=== PATIENT | male | born 1970 | race American Indian/Alaskan Native ===

== ENCOUNTER 2019-06-21 18:21 | Emergency (ER) | payer SELFPAY ==
[2019-06-21] MEDS ORDERED: levETIRAcetam 1000 MG/NS 0.75% 1,000 MG/100 ML BAG IV ONE (19:36)
[2019-06-21] MEDS ORDERED: SODIUM CHLORIDE 0.9% 1000 ML 1,000 ML IV ONE (19:36)
--- NOTE | 2019-06-21 19:37 | Emergency Department Report ---
ED General Adult HPI - General Chief complaint: Seizure Stated complaint: SEIZURE Time Seen by Provider: 06/21/19 19:11 Source: patient, family, EMS (verbal report received from emergency medical services. EMS documentation not available at time of chart dictation ), RN notes reviewed Mode of arrival: Stretcher Limitations: Other (the patient is a poor historian) - History of Present Illness Initial comments: This is a 49-year-old gentleman. This patient is not known to this provider previously. Apparently he has a history of stroke, and "blood clot on the brain", as per report from his sister to nursing team, also has a history of seizures, and reportedly takes Lamictal; we do not know what dose, who prescribes it, or how often. He is brought to the hospital by emergency medical services for possible seizure. As per verbal report from the emergency medical services, patient was walking at a store, and appeared to have a generalized convulsive event, and he was caught by a good Spiritism/passersby. EMS indicates the patient did not fall or hit his head. In the emergency room, the patient has no recollection of the event. He denies physical pain at this time. He denies urinary symptoms at this time. He endorses no complaints at this time. EMS does not know how long the event took place 4. We do not know when his last seizure was. -: Sudden Consistency: now resolved Improves with: none Worsens with: none - Related Data Home Medications Medication Instructions Recorded Confirmed Last Taken Atorvastatin Calcium [Lipitor] 20 mg PO QDAY 06/21/19 06/21/19 Unknown LORazepam [Ativan] 1 mg PO BID PRN 06/21/19 06/21/19 Unknown Lacosamide [Vimpat] 100 mg PO Q12HR 06/21/19 06/21/19 Unknown Lisinopril [Zestril TAB] 10 mg PO QDAY 06/21/19 06/21/19 Unknown Potassium Chloride [K-Dur] 20 meq PO QDAY 06/21/19 06/21/19 Unknown Sertraline [Zoloft] 50 mg PO QAM 06/21/19 06/21/19 Unknown Warfarin 6.5 mg PO QDAY 06/21/19 06/21/19 Unknown carvediloL [Coreg] 25 mg PO BID 06/21/19 06/21/19 Unknown lamoTRIgine [LaMICtal] 100 mg PO BID 06/21/19 06/21/19 Unknown traZODone [Desyrel] 100 mg PO QHS 06/21/19 06/21/19 Unknown Allergies Allergy/AdvReac Type Severity Reaction Status Date / Time Unable to Assess Allergy Unverified 06/21/19 21:10 ED Review of Systems ROS: Stated complaint: SEIZURE Other details as noted in HPI Constitutional: denies: fever Eyes: denies: eye discharge ENT: denies: congestion Respiratory: denies: wheezing Cardiovascular: denies: chest pain Gastrointestinal: denies: abdominal pain, nausea, vomiting Genitourinary: denies: dysuria Neurological: weakness ED Past Medical Hx - Medications Home Medications: Home Medications Medication Instructions Recorded Confirmed Last Taken Type Atorvastatin Calcium [Lipitor] 20 mg PO QDAY 06/21/19 06/21/19 Unknown History LORazepam [Ativan] 1 mg PO BID PRN 06/21/19 06/21/19 Unknown History Lacosamide [Vimpat] 100 mg PO Q12HR 06/21/19 06/21/19 Unknown History Lisinopril [Zestril TAB] 10 mg PO QDAY 06/21/19 06/21/19 Unknown History Potassium Chloride [K-Dur] 20 meq PO QDAY 06/21/19 06/21/19 Unknown History Sertraline [Zoloft] 50 mg PO QAM 06/21/19 06/21/19 Unknown History Warfarin 6.5 mg PO QDAY 06/21/19 06/21/19 Unknown History carvediloL [Coreg] 25 mg PO BID 06/21/19 06/21/19 Unknown History lamoTRIgine [LaMICtal] 100 mg PO BID 06/21/19 06/21/19 Unknown History traZODone [Desyrel] 100 mg PO QHS 06/21/19 06/21/19 Unknown History ED Physical Exam - General Limitations: Other (patient is a poor historian.) General appearance: alert, in no apparent distress - Head Head exam: Present: atraumatic, normocephalic - Eye Eye exam: Present: normal appearance, PERRL, EOMI, other (visual acuity intact to finger counting, color perception, reading at a close distance). Absent: nystagmus - ENT ENT exam: Present: normal exam, normal orophraynx, mucous membranes moist, normal external ear exam - Neck Neck exam: Present: normal inspection, full ROM. Absent: tenderness, meningismus - Respiratory Respiratory exam: Present: normal lung sounds bilaterally. Absent: respiratory distress - Cardiovascular Cardiovascular Exam: Present: regular rate, normal rhythm, normal heart sounds. Absent: bradycardia, tachycardia, systolic murmur, diastolic murmur, rubs, gallop - GI/Abdominal GI/Abdominal exam: Present: soft. Absent: distended, tenderness, guarding, rebound, rigid, pulsatile mass - Rectal Rectal exam: Present: deferred - Extremities Exam Extremities exam: Present: normal inspection, full ROM, other (2+ pulses noted in the bilateral upper, lower extremities. There is no long bone tenderness. Musculoskeletal compartments are soft. The pelvis is stable.). Absent: pedal edema, calf tenderness - Back Exam Back exam: Present: normal inspection, full ROM. Absent: tenderness, CVA tenderness (R), CVA tenderness (L), paraspinal tenderness, vertebral tenderness - Neurological Exam Neurological exam: Present: alert (the patient is alert to name. He knows the year.), other (there is no facial droop. The tongue is midline. Extraocular movements are intact bilaterally. Patient speaking in full complete sentences. Shoulder shrug is intact bilaterally. Hearing is grossly intact bilaterally. Visual acuity intact to finger counting and color perception at a close distance. 5/5 strength 4 extremities. Sensation intact to light touch in 4 extremities.) - Psychiatric Psychiatric exam: Present: flat affect - Skin Skin exam: Present: warm, dry, intact, normal color. Absent: rash ED Course Vital Signs 06/21/19 06/21/19 06/21/19 19:43 19:46 19:47 Temperature 97.5 F L Pulse Rate 96 H 87 Respiratory 19 19 18 Rate Blood Pressure 149/105 Blood Pressure [Left] O2 Sat by Pulse 100 100 100 Oximetry 06/21/19 06/21/19 06/21/19 20:00 20:16 20:30 Temperature Pulse Rate 97 H 94 H 93 H Respiratory 15 22 25 H Rate Blood Pressure 154/111 138/106 138/106 Blood Pressure [Left] O2 Sat by Pulse 100 100 99 Oximetry 06/21/19 06/21/19 06/21/19 20:46 21:00 21:16 Temperature Pulse Rate 90 90 89 Respiratory 15 26 H Rate Blood Pressure 138/106 138/106 160/113 Blood Pressure [Left] O2 Sat by Pulse 100 100 100 Oximetry 06/21/19 06/21/19 06/21/19 21:46 22:00 22:16 Temperature Pulse Rate Respiratory Rate Blood Pressure 160/113 161/112 135/90 Blood Pressure [Left] O2 Sat by Pulse 100 100 100 Oximetry 06/21/19 06/21/19 06/21/19 22:30 22:46 23:00 Temperature Pulse Rate Respiratory Rate Blood Pressure 135/90 135/90 135/90 Blood Pressure [Left] O2 Sat by Pulse 100 100 98 Oximetry 06/22/19 06/22/19 06/22/19 03:00 10:05 10:20 Temperature Pulse Rate 88 80 80 Respiratory 18 16 Rate Blood Pressure 149/106 Blood Pressure 119/78 149/106 [Left] O2 Sat by Pulse 98 97 Oximetry 06/22/19 06/22/19 10:21 12:59 Temperature Pulse Rate 80 80 Respiratory 16 Rate Blood Pressure 149/106 Blood Pressure 132/82 [Left] O2 Sat by Pulse 97 Oximetry - Reevaluation(s) Reevaluation #1: 06/21/19 22:14 Differential diagnosis, including but not limited to: Seizure, postictal state, intracranial hemorrhage, urinary tract infection, medication noncompliance Assessment and plan: 49-year-old gentleman who is brought to the hospital by emergency medical services for seizure in the field, he is now awake and alert, and clinically sober, and not in any acute distress. He moves 4 extremities spontaneously, as per verbal report from EMS did not fall or hit his head/neck. CT scan of the brain negative for acute disease. Patient was given Keppra as well as Lamictal. Unfortunately, he is not able to get home on his own secondary poor cognition, and family is not able to pick him up as they do not have a ride. A case management consult is requested to assist in transportat ion. Nursing team has been requested to reconcile the patient's medications so that THEY MAY be continued while here in the emergency room. Reevaluation #2: 06/22/19 00:[address] Huynh no active medical issues at this time, his medications have been reconciled and continued, case management will need to arrange for transportation. However, if the patient family or friends are able to come by and pick him up, we would consider this reasonable. In addition, if the patient is able to demonstrate that he can get home on his own accord, this would also be reasonable. ED Medical Decision Making - Lab Data Result diagrams: 06/21/19 20:12 06/21/19 20:12 Vital Signs 06/21/19 06/21/19 06/21/19 19:43 19:46 19:47 Temperature 97.5 F L Pulse Rate 96 H 87 Respiratory 19 19 18 Rate Blood Pressure 149/105 O2 Sat by Pulse 100 100 100 Oximetry 06/21/19 06/21/19 06/21/19 20:00 20:16 20:30 Temperature Pulse Rate 97 H 94 H 93 H Respiratory 15 22 25 H Rate Blood Pressure 154/111 138/106 138/106 O2 Sat by Pulse 100 100 99 Oximetry 06/21/19 06/21/19 06/21/19 20:46 21:00 21:16 Temperature Pulse Rate 90 90 89 Respiratory 15 26 H Rate Blood Pressure 138/106 138/106 160/113 O2 Sat by Pulse 100 100 100 Oximetry Lab Results 06/21/19 06/21/19 06/21/19 Range/Units 19:50 20:12 20:12 WBC 4.6 (4.5-11.0) K/mm3 RBC 4.08 (3.65-5.03) M/mm3 Hgb 12.1 (11.8-15.2) gm/dl Hct 36.5 (35.5-45.6) % MCV 89 (84-94) fl MCH 30 (28-32) pg MCHC 33 (32-34) % RDW 13.9 (13.2-15.2) % Plt Count 264 (140-440) K/mm3 PT 25.4 H (12.2-14.9) Sec. INR 2.37 H (0.87-1.13) Sodium (137-145) mmol/L Potassium (3.6-5.0) mmol/L Chloride (98-107) mmol/L Carbon Dioxide (22-30) mmol/L Anion Gap mmol/L BUN (9-20) mg/dL Creatinine (0.8-1.5) mg/dL Estimated GFR ml/min BUN/Creatinine Ratio % Glucose (75-100) mg/dL POC Glucose 86 (70-105) Calcium (8.4-10.2) mg/dL Magnesium (1.7-2.3) mg/dL Total Bilirubin (0.1-1.2) mg/dL AST (5-40) units/L ALT (7-56) units/L Alkaline Phosphatase (35-129) units/L Total Creatine Kinase (55-170) units/L Total Protein (6.3-8.2) g/dL Albumin (3.9-5) g/dL Albumin/Globulin Ratio % Urine Color (Yellow) Urine Turbidity (Clear) Urine pH (5.0-7.0) Ur Specific [place] (1.003-1.030) Urine Protein (Negative) mg/dL Urine Glucose (UA) (Negative) mg/dL Urine Ketones (Negative) mg/dL Urine Blood (Negative) Urine Nitrite (Negative) Urine Bilirubin (Negative) Urine Urobilinogen (<2.0) mg/dL Ur Leukocyte Esterase (Negative) Urine WBC (Auto) (0.0-6.0) /HPF Urine RBC (Auto) (0.0-6.0) /HPF Urine Mucus /HPF Salicylates (2.8-20.0) mg/dL Urine Opiates Screen Urine Methadone Screen Acetaminophen (10.0-30.0) ug/mL Ur Barbiturates Screen Valproic Acid (50-100) ug/mL Ur Phencyclidine Scrn Ur Amphetamines Screen U Benzodiazepines Scrn Urine Cocaine Screen U Marijuana (THC) Screen Drugs of Abuse Note Plasma/Serum Alcohol (0-0.07) % 06/21/19 06/21/19 06/21/19 Range/Units 20:12 20:12 20:12 WBC (4.5-11.0) K/mm3 RBC (3.65-5.03) M/mm3 Hgb (11.8-15.2) gm/dl Hct (35.5-45.6) % MCV (84-94) fl MCH (28-32) pg MCHC (32-34) % RDW (13.2-15.2) % Plt Count (140-440) K/mm3 PT (12.2-14.9) Sec. INR (0.87-1.13) Sodium 142 (137-145) mmol/L Potassium 4.6 (3.6-5.0) mmol/L Chloride 105.3 (98-107) mmol/L Carbon Dioxide 26 (22-30) mmol/L Anion Gap 15 mmol/L BUN 9 (9-20) mg/dL Creatinine 1.3 (0.8-1.5) mg/dL Estimated GFR 58 ml/min BUN/Creatinine Ratio 7 % Glucose 104 H (75-100) mg/dL POC Glucose (70-105) Calcium 8.8 (8.4-10.2) mg/dL Magnesium 2.00 (1.7-2.3) mg/dL Total Bilirubin 0.20 (0.1-1.2) mg/dL AST 28 (5-40) units/L ALT 29 (7-56) units/L Alkaline Phosphatase 60 (35-129) units/L Total Creatine Kinase 487 H (55-170) units/L Total Protein 6.8 (6.3-8.2) g/dL Albumin 3.9 (3.9-5) g/dL Albumin/Globulin Ratio 1.3 % Urine Color (Yellow) Urine Turbidity (Clear) Urine pH (5.0-7.0) Ur Specific [place] (1.003-1.030) Urine Protein (Negative) mg/dL Urine Glucose (UA) (Negative) mg/dL Urine Ketones (Negative) mg/dL Urine Blood (Negative) Urine Nitrite (Negative) Urine Bilirubin (Negative) Urine Urobilinogen (<2.0) mg/dL Ur Leukocyte Esterase (Negative) Urine WBC (Auto) (0.0-6.0) /HPF Urine RBC (Auto) (0.0-6.0) /HPF Urine Mucus /HPF Salicylates < 0.3 L (2.8-20.0) mg/dL Urine Opiates Screen Urine Methadone Screen Acetaminophen < 5.0 L (10.0-30.0) ug/mL Ur Barbiturates Screen Valproic Acid < 2.8 L (50-100) ug/mL Ur Phencyclidine Scrn Ur Amphetamines Screen U Benzodiazepines Scrn Urine Cocaine Screen U Marijuana (THC) Screen Drugs of Abuse Note Plasma/Serum Alcohol (0-0.07) % 06/21/19 06/21/19 06/21/19 Range/Units 20:12 21:00 21:00 WBC (4.5-11.0) K/mm3 RBC (3.65-5.03) M/mm3 Hgb (11.8-15.2) gm/dl Hct (35.5-45.6) % MCV (84-94) fl MCH (28-32) pg MCHC (32-34) % RDW (13.2-15.2) % Plt Count (140-440) K/mm3 PT (12.2-14.9) Sec. INR (0.87-1.13) Sodium (137-145) mmol/L Potassium (3.6-5.0) mmol/L Chloride (98-107) mmol/L Carbon Dioxide (22-30) mmol/L Anion Gap mmol/L BUN (9-20) mg/dL Creatinine (0.8-1.5) mg/dL Estimated GFR ml/min BUN/Creatinine Ratio % Glucose (75-100) mg/dL POC Glucose (70-105) Calcium (8.4-10.2) mg/dL Magnesium (1.7-2.3) mg/dL Total Bilirubin (0.1-1.2) mg/dL AST (5-40) units/L ALT (7-56) units/L Alkaline Phosphatase (35-129) units/L Total Creatine Kinase (55-170) units/L Total Protein (6.3-8.2) g/dL Albumin (3.9-5) g/dL Albumin/Globulin Ratio % Urine Color Yellow (Yellow) Urine Turbidity Clear (Clear) Urine pH 5.0 (5.0-7.0) Ur Specific [place] 1.021 (1.003-1.030) Urine Protein <15 mg/dl (Negative) mg/dL Urine Glucose (UA) Neg (Negative) mg/dL Urine Ketones Neg (Negative) mg/dL Urine Blood Neg (Negative) Urine Nitrite Neg (Negative) Urine Bilirubin Neg (Negative) Urine Urobilinogen < 2.0 (<2.0) mg/dL Ur Leukocyte Esterase Neg (Negative) Urine WBC (Auto) < 1.0 (0.0-6.0) /HPF Urine RBC (Auto) 2.0 (0.0-6.0) /HPF Urine Mucus Few /HPF Salicylates (2.8-20.0) mg/dL Urine Opiates Screen Presumptive negative Urine Methadone Screen Presumptive negative Acetaminophen (10.0-30.0) ug/mL Ur Barbiturates Screen Presumptive negative Valproic Acid (50-100) ug/mL Ur Phencyclidine Scrn Presumptive negative Ur Amphetamines Screen Presumptive positive U Benzodiazepines Scrn Presumptive negative Urine Cocaine Screen Presumptive negative U Marijuana (THC) Screen Presumptive negative Drugs of Abuse Note Disclamer Plasma/Serum Alcohol < 0.01 (0-0.07) % - EKG Data -: EKG Interpreted by Fl EKG shows normal: sinus rhythm Rate: normal - EKG Data When compared to previous EKG there are: previous EKG unavailable 06/21/19 22:14 There is no prior EKG available for comparison. The EKG shows a sinus rhythm, 92 beats for minute, normal axis, left ventricular hypertrophy, QTC is 456 ms, there is motion artifact, there is no endorsement of chest pain, the EKG is abnormal, the EKG is not consistent with a STEMI - Radiology Data Radiology results: report reviewed, image reviewed Print Report Referring Physician: TATIANA ALMENDAREZ Patient Name: SAMIR HERNANDEZ Date of : 1970 Sex: Male Report Date: 2019-06-21 Report Status: Finalized Findings [facility] [address] [place] [address] Cat Scan Report Signed Patient: SAMIR HERNANDEZ V MR#: [id number] : 1970 Acct:[id number] Age/Sex: 49 / M ADM Date: 06/21/19 Loc: ED Attending Dr: Ordering Physician: TATIANA ALMENDAREZ MD Date of Service: 06/21/19 Procedure(s): CT head/brain wo con Accession Number(s): [id number] cc: TATIANA ALMENDAREZ MD CT HEAD WITHOUT CONTRAST INDICATION / CLINICAL INFORMATION: Seizure. Altered mental status. TECHNIQUE: All CT scans at this location are performed using CT dose reduction for ALARA by means of automated exposure control. COMPARISON: None available. FINDINGS: HEMORRHAGE: No evidence of intracranial hemorrhage or extra-axial fluid collection. EXTRA-AXIAL SPACES: Focal dilatation of the kan ical sulci along the lateral convexity of the left frontal and parietal lobes is noted. Similar findings are seen along the medial aspect of the left occipital lobe secondary to remote left MCA and left posterior cerebral artery infarctions. The left sylvian fissure is dilated. VENTRICULAR SYSTEM: Ex vacuo dilatation of the atria, occipital horn and posterior body of the left lateral ventricle is noted secondary to adjacent remote infarctions in a left middle cerebral artery and left posterior cerebral artery distribution. The ventricular system is of otherwise normal size and configuration. CEREBRAL PARENCHYMA: Decreased attenuation in the medial occipital lobe and left frontal and parietal lobes are secondary to remote infarction. MIDLINE SHIFT OR HERNIATION: There is no mass effect. CEREBELLUM / BRAINSTEM: Brainstem and cerebellum have an unremarkable appearance. INTRACRANIAL VESSELS:No abnormalities are identified on this noncontrast head CT. ORBITS: visualized portions of the orbits have an unremarkable appearance. SOFT TISSUES of HEAD: No significant abnormality. CALVARIUM: Evaluation of bone windows reveals no abnormalities. PARANASAL SINUSES / MASTOID AIR CELLS: Paranasal sinuses are free from inflammatory mucosal disease. Mastoid air cells are normally pneumatized. IMPRESSION: 1. Remote left MCA and left MANUFACTURER'S REPRESENTATIVE infarctions with associated encephalomalacia and focal atrophy as described in detail above. 2. No acute intracranial abnormality. Signer Name: Ron Maya MD Signed: 06/21/2019 9:45 PM Workstation Name: [id number] Transcribed By: Dictated By: Ron Maya MD Electronically Authenticated By: Ron Maya MD Signed Date/Time: 06/21/19 7728 Critical care attestation.: If time is entered above; I have spent that time in minutes in the direct care of this critically ill patient, excluding procedure time. ED Disposition Clinical Impression: History of seizure Disposition: DC-01 TO HOME OR SELFCARE Is pt being admited?: No Does the pt Need Aspirin: No Condition: Stable Additional Instructions: Do not drive or operate motor vehicles for the next 6 months or until cleared to do so by her primary care doctor or neurologist. Continue current outpatient seizure medication, lamictal, and please follow-up with your primary care doctor or neurology specialist within the next 5-7 days. Return to emergency room right away with new, worsened, different symptoms, or symptoms not present on the initial emergency room evaluation. Referrals: CRISPIN PEÑA MD [Staff Physician] - 3-5 Days LENORE WOODS MD [Staff Physician] - 3-5 Days GORDON KHANNA MD [Referring] - 3-5 Days
[2019-06-21] MEDS ORDERED: lamoTRIgine 100 MG TAB PO ONE (20:26)
[2019-06-21 20:27] LABS: Hematocrit 36.5 % (35.5-45.6); Hemoglobin 12.1 gm/dl (11.8-15.2); Mean Corpuscular HGB Conc 33 % (32-34); Mean Corpuscular Volume 89 fl (84-94); Platelet Count 264 K/mm3 (140-440); Red Blood Count 4.08 M/mm3 (3.65-5.03); Red Cell Distribution Width 13.9 % (13.2-15.2)
[2019-06-21 20:46] LABS: Albumin 3.9 g/dL (3.9-5); Calcium 8.8 mg/dL (8.4-10.2); INR 2.37 (0.87-1.13)
[2019-06-21 21:16] LABS: Bilirubin,Urine NEG (Negative); Blood,Urine NEG (Negative); Color,Urine Yellow (Yellow); Mucus,Urine FEW /HPF; Protein,Urine <15 mg/dL mg/dL (Negative); Urobilinogen,Urine < 2.0 mg/dL (<2.0); WBC,Urine < 1.0 /HPF (0.0-6.0)
[2019-06-21 21:22] LABS: Benzodiazepines Screen,Urine PRESUMPTIVE NEGATIVE; Cannabinoid Screen,Urine PRESUMPTIVE NEGATIVE; Cocaine Screen,Urine PRESUMPTIVE NEGATIVE; Methadone Screen,Urine PRESUMPTIVE NEGATIVE; Opiate Screen,Urine PRESUMPTIVE NEGATIVE
[2019-06-21 21:34] LABS: Amphetamine Screen,Urine PRESUMPTIVE POSITIVE
--- NOTE | 2019-06-21 21:49 | Cat Scan Report ---
CT HEAD WITHOUT CONTRAST INDICATION / CLINICAL INFORMATION: Seizure. Altered mental status. TECHNIQUE: All CT scans at this location are performed using CT dose reduction for ALARA by means of automated e xposure control. COMPARISON: None available. FINDINGS: HEMORRHAGE: No evidence of intracranial hemorrhage or extra-axial fluid collection. EXTRA-AXIAL SPACES: Focal dilatation of the cortical sulci along the lateral convexity of the left fr ontal and parietal lobes is noted. Similar findings are seen along the medial aspect of the left occi pital lobe secondary to remote left MCA and left posterior cerebral artery infarctions. The left sylv martha fissure is dilated. VENTRICULAR SYSTEM: Ex vacuo dilatation of the atria, occipital horn and posterior body of the left l ateral ventricle is noted secondary to adjacent remote infarctions in a left middle cerebral artery a nd left posterior cerebral artery distribution. The ventricular system is of otherwise normal size an d configuration. CEREBRAL PARENCHYMA: Decreased attenuation in the medial occipital lobe and left frontal and parietal lobes are secondary to remote infarction. MIDLINE SHIFT OR HERNIATION: There is no mass effect. CEREBELLUM / BRAINSTEM: Brainstem and cerebellum have an unremarkable appearance. INTRACRANIAL VESSELS:No abnormalities are identified on this noncontrast head CT. ORBITS: visualized portions of the orbits have an unremarkable appearance. SOFT TISSUES of HEAD: No significant abnormality. CALVARIUM: Evaluation of bone windows reveals no abnormalities. PARANASAL SINUSES / MASTOID AIR CELLS: Paranasal sinuses are free from inflammatory mucosal disease. Mastoid air cells are normally pneumatized. IMPRESSION: 1. Remote left MCA and left CIRCUIT BREAKER MECHANIC infarctions with associated encephalomalacia and focal atrophy as erlinda cribed in detail above. 2. No acute intracranial abnormality. Signer Name: Ron Maya MD Signed: 06/21/2019 9:45 PM Workstation Name: [id number]
[2019-06-21] MEDS ORDERED: LORazepam 1 MG TAB PO PRN (23:00)
[2019-06-21] MEDS ORDERED: LACOSAMIDE 100 MG TAB PO STA (23:01)
[2019-06-22] MEDS: carvediloL 25 MG TAB PO SCH ×2 (00:17→10:20)
[2019-06-22] MEDS ORDERED: POTASSIUM CHLORIDE ER 20 MEQ TAB PO SCH (10:00)
[2019-06-22] MEDS ORDERED: SERTRALINE 50 MG TAB PO SCH (10:00)
[2019-06-22] MEDS ORDERED: LISINOPRIL 10 MG TAB PO SCH (10:00)
[2019-06-22] MEDS ORDERED: ATORVASTATIN CALCIUM 20 MG PO SCH (10:00)
[2019-06-22] MEDS ORDERED: WARFARIN PO SCH (10:00)
[2019-06-22] MEDS ORDERED: lamoTRIgine 100 MG TAB PO SCH (10:00)
[2019-06-22] MEDS ORDERED: LACOSAMIDE 100 MG TAB PO SCH (10:00)
[2019-06-22 13:01] VITALS: BP 132/82
[2019-06-22] MEDS ORDERED: WARFARIN 2 MG TAB PO SCH (17:00)
[2019-06-22] MEDS ORDERED: WARFARIN 2.5 MG TAB PO SCH (17:00)
[2019-06-22] MEDS ORDERED: traZODone 100 MG TAB PO SCH (22:00)
== END 2019-06-22 13:05 | disposition home or self-care (01) ==
LOC: ED 18:21
DX: G40.909 Epilepsy, unspecified, not intractable, without status epilepticus (principal); Z79.899 Other long term (current) drug therapy
CPT/HCPCS: 36415; 70450; 80053; 80164; 80307; 81001; 82550; 82962; 83735; 85027; 85610; 93005; 93010; 96365; 99285; A9270; J1953; J7030; 80320; G0480

== ENCOUNTER 2020-05-01 10:06 | Emergency (ER) | payer OTHER ==
[2020-05-01] MEDS ORDERED: levETIRAcetam 1000 MG/NS 0.75% 1,000 MG/100 ML BAG IV ONE (10:16)
[2020-05-01] MEDS ORDERED: DIPHtheria,PERTUSSIS(ACELL),TETANUS VACCINE/PF 0.5 ML VIAL IM ONE (10:17)
[2020-05-01] MEDS ORDERED: lamoTRIgine 100 MG TAB PO ONE (10:17)
--- NOTE | 2020-05-01 10:18 | Emergency Department Report ---
ED General Adult HPI - General Chief complaint: Seizure Stated complaint: SEIZURE PUI?: No Time Seen by Provider: 05/01/20 10:13 Source: patient, EMS (Verbal report received from emergency medical services. EMS documentation not available at time of chart dictation ), RN notes reviewed, old records reviewed Mode of arrival: Stretcher Limitations: Other (Patient is a poor historian) - History of Present Illness Initial comments: The patient was evaluated in the emergency department for symptoms described in the history of present illness. He/she was evaluated in the context of the global COVID-19 pandemic, which necessitated consideration that the patient might be at risk for infection with the virus that causes COVID-19. Institutional protocols and algorithms that pertain to the evaluation of patients at risk for COVID-19 are in a state of rapid change based on information released by regulatory bodies including the CDC and federal and state organizations. These policies and algorithms were followed during the patient's care in the emergency department. Please note that these policies, procedures and recommendations changed on a rapid basis. Mr. Sanderson is a 50-year-old gentleman whom I have evaluated in the past. His past history includes stroke in 2016, with some residual cognitive deficits, hypertension, seizure disorder, permanent AICD in place, reported history of methamphetamine abuse, hypertension and hyperlipidemia. He also takes Eliquis, for unclear reasons. He is brought to the hospital today by emergency medical services with a reported complaint of seizure. EMS states the patient was at home, had a seizure, fell and hit his head. They report no unstable vital signs in the field. They report normal Accu-Chek in the field. Patient himself complains of mild frontal headache, from where he fell. He makes no complaint of neck pain. He is somewhat confused. He says that he thinks he had a seizure while he was eating, but he is not certain. He denies midline neck pain, chest pain, abdominal pain, shortness of breath, urinary symptoms, hematemesis and bright red blood per rectum. He is not sure if he is compliant with his seizure medications. He is not sure when his last seizure was. He is not accompanied by friends or family at this time for additional information or collateral information. -: Sudden Location: head Quality: aching Consistency: intermittent Improves with: other (Patient does not describe improving factors or worsening factors.) Associated Symptoms: headaches - Related Data Home Medications Medication Instructions Recorded Confirmed Last Taken Atorvastatin Calcium [Lipitor] 10 mg PO QDAY 06/21/19 05/01/20 Unknown Lacosamide [Vimpat] 100 mg PO Q12HR 06/21/19 05/01/20 Unknown carvediloL [Coreg] 12.5 mg PO BID 06/21/19 05/01/20 Unknown lisinopriL [Zestril TAB] 5 mg PO QDAY 06/21/19 05/01/20 Unknown AtorvaSTATin [Lipitor] 10 mg PO QHS 05/01/20 05/01/20 Unknown Eliquis 05/01/20 Unknown Lacosamide [Vimpat] 100 mg PO Q12HR 05/01/20 05/01/20 Unknown Previous Rx's Medication Instructions Recorded Last Taken Type lamoTRIgine [LaMICtal] 100 mg PO BID #60 05/01/20 Unknown Rx levETIRAcetam [Keppra TAB] 1,000 mg PO QAM #30 05/01/20 Unknown Rx levETIRAcetam [Keppra TAB] 1,250 mg PO QPM #30 05/01/20 Unknown Rx Allergies Allergy/AdvReac Type Severity Reaction Status Date / Time No Known Allergies Allergy Verified 04/15/20 21:20 ED Review of Systems ROS: Stated complaint: SEIZURE Other details as noted in HPI Constitutional: denies: fever Eyes: denies: eye discharge ENT: denies: epistaxis Respiratory: denies: cough Cardiovascular: denies: chest pain Gastrointestinal: denies: abdominal pain, hematemesis, melena, hematochezia Genitourinary: denies: dysuria Musculoskeletal: myalgia Skin: other (Frontal abrasion) Neurological: headache, confusion ED Past Medical Hx - Past Medical History Hx Hypertension: Yes Hx CVA: Yes (2016) Hx Congestive Heart Failure: Yes Hx Seizures: Yes Hx Psychiatric Treatment: Yes (depression) Additional medical history: memory problems - Surgical History Hx Pacemaker: Yes Additional Surgical History: unknown - Social History Smoking Status: Never Smoker Substance Use Type: None - Medications Home Medications: Home Medications Medication Instructions Recorded Confirmed Last Taken Type Atorvastatin Calcium [Lipitor] 10 mg PO QDAY 06/21/19 05/01/20 Unknown History Lacosamide [Vimpat] 100 mg PO Q12HR 06/21/19 05/01/20 Unknown History carvediloL [Coreg] 12.5 mg PO BID 06/21/19 05/01/20 Unknown History lisinopriL [Zestril TAB] 5 mg PO QDAY 06/21/19 05/01/20 Unknown History AtorvaSTATin [Lipitor] 10 mg PO QHS 05/01/20 05/01/20 Unknown History Eliquis 05/01/20 Unknown History Lacosamide [Vimpat] 100 mg PO Q12HR 05/01/20 05/01/20 Unknown History lamoTRIgine [LaMICtal] 100 mg PO BID #60 05/01/20 Unknown Rx levETIRAcetam [Keppra TAB] 1,000 mg PO QAM #30 05/01/20 Unknown Rx levETIRAcetam [Keppra TAB] 1,250 mg PO QPM #30 05/01/20 Unknown Rx ED Physical Exam - General Limitations: Other (Patient somewhat confused and is a poor historian) General appearance: alert, in no apparent distress - Head Head exam: Present: normocephalic, other (Right frontal abrasion) - Eye Eye exam: Present: normal appearance, PERRL, EOMI, nystagmus - ENT ENT exam: Present: normal exam, normal orophraynx, mucous membranes moist, TM's normal bilaterally, normal external ear exam - Neck Neck exam: Present: normal inspection, full ROM. Absent: tenderness, meningismus - Respiratory Respiratory exam: Present: normal lung sounds bilaterally. Absent: respiratory distress, wheezes, rales, rhonchi, stridor, decreased breath sounds - Cardiovascular Cardiovascular Exam: Present: regular rate, normal rhythm, normal heart sounds. Absent: bradycardia, tachycardia, irregular rhythm, systolic murmur, diastolic murmur, rubs, gallop - GI/Abdominal GI/Abdominal exam: Present: soft, normal bowel sounds. Absent: distended, tenderness, guarding, rebound, rigid, pulsatile mass - Rectal Rectal exam: Present: deferred - Extremities Exam Extremities exam: Present: normal inspection, full ROM, normal capillary refill, other (2+ pulses noted in the bilateral upper and lower extremities. There is no palpable cord. negative Homans sign. Muscular compartments are soft. The pelvis is stable.). Absent: pedal edema, calf tenderness - Back Exam Back exam: Present: normal inspection, full ROM. Absent: tenderness, CVA tenderness (R), CVA tenderness (L), paraspinal tenderness, vertebral tenderness - Neurological Exam Neurological exam: Present: alert, other (No facial droop. Tongue midline. Extraocular movements intact bilaterally. Facial sensation intact to light touch in V1, V2, V3 distribution bilaterally. 5 and a 5 strength in 4 extremities. Sensation intact to light touch in 4 extremities.). Absent: motor sensory deficit - Psychiatric Psychiatric exam: Present: flat affect - Skin Skin exam: Present: warm, dry, intact, normal color. Absent: rash ED Course Vital Signs 05/01/20 05/01/20 11:01 11:35 Temperature 98.0 F Pulse Rate 65 73 Respiratory 16 Rate Blood Pressure 125/76 [Right] O2 Sat by Pulse 98 100 Oximetry - Reevaluation(s) Reevaluation #1: 05/01/20 11:16 Differential diagnosis, including but not limited to: Seizure, closed head injury, intracranial injury, cervical spine injury, concussion, pneumonia, urinary tract infection Assessment and plan: 50-year-old gentleman with reported history of seizure, on anticoagulation, presenting with reported history of seizure today. Patient is awake, somewhat confused, but knows his name, location, follows commands, protects his airway, he does not appear to be in any acute distress. Given poor cognition, CT scan of the brain and cervical spine are obtained, neg ative for acute disease, specifically, no bleeding is noted. Patient is not in A. fib or a flutter at this time. Screening laboratory studies ordered and are pending. Urinalysis is pending at this time. Patient will be given Keppra and Lamictal. We will observe him in the emergency room. Reevaluation #2: 05/01/20 13:15 Patient re-observed and reassessed multiple times while here in the department. Neurologically unchanged, no active seizures. Objective imaging studies negative for acute pathology. Laboratory studies appear to be at baseline. No further convulsive events noted. Patient suitable for discharge with outpatient follow-up. ED Medical Decision Making - Lab Data Result diagrams: 05/01/20 10:37 05/01/20 10:37 Vital Signs 05/01/20 05/01/20 11:01 11:35 Temperature 98.0 F Pulse Rate 65 73 Respiratory 16 Rate Blood Pressure 125/76 [Right] O2 Sat by Pulse 98 100 Oximetry Lab Results 05/01/20 05/01/20 05/01/20 Range/Units 10:37 10:37 10:37 Hgb (11.8-15.2) gm/dl Hct (35.5-45.6) % Plt Count (140-440) K/mm3 PT (12.2-14.9) Sec. INR (0.87-1.13) APTT (24.2-36.6) Sec. Sodium 141 (137-145) mmol/L Potassium 4.1 (3.6-5.0) mmol/L Chloride 103.6 (98-107) mmol/L Carbon Dioxide 26 (22-30) mmol/L Anion Gap 16 mmol/L BUN 16 (9-20) mg/dL Creatinine 1.6 H (0.8-1.3) mg/dL Estimated GFR 55 ml/min BUN/Creatinine Ratio 10 % Glucose 107 H (75-100) mg/dL Calcium 9.6 (8.4-10.2) mg/dL Magnesium (1.7-2.3) mg/dL Total Bilirubin 0.20 (0.1-1.2) mg/dL AST 23 (5-40) units/L ALT 20 (7-56) units/L Alkaline Phosphatase 82 (35-129) units/L Total Creatine Kinase (55-170) units/L Total Protein 7.3 (6.3-8.2) g/dL Albumin 4.2 (3.9-5) g/dL Albumin/Globulin Ratio 1.4 % Salicylates < 0.3 L (2.8-20.0) mg/dL Acetaminophen 5.0 L (10.0-30.0) ug/mL Plasma/Serum Alcohol (0-0.07) % 05/01/20 05/01/20 05/01/20 Range/Units 10:37 10:37 10:37 Hgb (11.8-15.2) gm/dl Hct (35.5-45.6) % Plt Count (140-440) K/mm3 PT 15.5 H (12.2-14.9) Sec. INR 1.20 H (0.87-1.13) APTT 35.2 (24.2-36.6) Sec. Sodium (137-145) mmol/L Potassium (3.6-5.0) mmol/L Chloride (98-107) mmol/L Carbon Dioxide (22-30) mmol/L Anion Gap mmol/L BUN (9-20) mg/dL Creatinine (0.8-1.3) mg/dL Estimated GFR ml/min BUN/Creatinine Ratio % Glucose (75-100) mg/dL Calcium (8.4-10.2) mg/dL Magnesium 2.40 H (1.7-2.3) mg/dL Total Bilirubin (0.1-1.2) mg/dL AST (5-40) units/L ALT (7-56) units/L Alkaline Phosphatase (35-129) units/L Total Creatine Kinase 188 H (55-170) units/L Total Protein (6.3-8.2) g/dL Albumin (3.9-5) g/dL Albumin/Globulin Ratio % Salicylates (2.8-20.0) mg/dL Acetaminophen (10.0-30.0) ug/mL Plasma/Serum Alcohol < 0.01 (0-0.07) % 05/01/20 Range/Units 10:37 Hgb 12.6 (11.8-15.2) gm/dl Hct 37.2 (35.5-45.6) % Plt Count 269 (140-440) K/mm3 PT (12.2-14.9) Sec. INR (0.87-1.13) APTT (24.2-36.6) Sec. Sodium (137-145) mmol/L Potassium (3.6-5.0) mmol/L Chloride (98-107) mmol/L Carbon Dioxide (22-30) mmol/L Anion Gap mmol/L BUN (9-20) mg/dL Creatinine (0.8-1.3) mg/dL Estimated GFR ml/min BUN/Creatinine Ratio % Glucose (75-100) mg/dL Calcium (8.4-10.2) mg/dL Magnesium (1.7-2.3) mg/dL Total Bilirubin (0.1-1.2) mg/dL AST (5-40) units/L ALT (7-56) units/L Alkaline Phosphatase (35-129) units/L Total Creatine Kinase (55-170) units/L Total Protein (6.3-8.2) g/dL Albumin (3.9-5) g/dL Albumin/Globulin Ratio % Salicylates (2.8-20.0) mg/dL Acetaminophen (10.0-30.0) ug/mL Plasma/Serum Alcohol (0-0.07) % - EKG Data -: EKG Interpreted by Me EKG shows normal: sinus rhythm Rate: normal - EKG Data 05/01/20 11:15 EKG today shows a sinus rhythm, 51 bpm, left axis deviation, left anterior fascicular block, borderline first-degree AV block, low voltage in the lateral leads, Q waves in the inferior leads, this EKG is abnormal, this EKG is not a STEMI. The EKG today appears to be unchanged from prior EKG from March 2020 - Radiology Data Radiology results: report reviewed, image reviewed interpreted by me: X-ray of the chest shows clear lungs, and ICD in place, no obvious pneumothorax, no infiltrate, unremarkable bony anatomy, unremarkable cardiac silhouette, appears unchanged from prior. Print Report Referring Physician: TATIANA ALMENDAREZ Patient Name: SAMIR SANDERSON Date of : 1970 Sex: Male Report Date: 2020-05-01 Report Status: Finalized Findings [facility] [address] [place] [address] Cat Scan Report Signed Patient: SAMIR SANDERSON V MR#: [id number] : 1970 Acct:[id number] Age/Sex: 50 / M ADM Date: 05/01/20 Loc: ED Attending Dr: Ordering Physician: TATIANA ALMENDAREZ MD Date of Service: 05/01/20 Procedure(s): CT cervical spine wo con Accession Number(s): [id number] cc: TATIANA ALMENDAREZ MD CT CERVICAL SPINE: 05/01/2020 INDICATION / CLINICAL INFORMATION: Seizure. Trauma COMPARISON: None available. FINDINGS: CT images of the cervical spine were obtained. Images are evaluated in the axial, coronal, and sagittal planes. There is no evidence of acute abnormality. Vertebral body height and alignment is normal. There is some degenerative disc space narrowing and mild osteophyte formation at C3-4 level. Degenerative osteophyte formation is associated with the anterior atlantoaxial joint. : . CRANIOCERVICAL JUNCTION: Unremarkable. PARASPINAL STRUCTURES: Unremarkable IMPRESSION: No acute abnormality. All CT scans at this location are performed using dose reduction to ALARA by means of automated exposure control. Signer Name: Galo Acevedo MD Signed: 05/01/2020 10:51 AM Workstation Name: [id number] Transcribed By: LAVON Dictated By: Galo Acevedo MD Electronically Authenticated By: Galo Acevedo MD Signed Date/Time: 05/01/20 1051 DD/ 1049 TD/TT: Print Report Referring Physician: TATIANA ALMENDAREZ Patient Name: SAMIR SANDERSON Date of : 1970 Sex: Male Report Date: 2020-05-01 Report Status: Finalized Findings [facility] [address] [place] [address] Cat Scan Report Signed Patient: SAMIR SANDERSON V MR#: [id number] : 1970 Acct:[id number] Age/Sex: 50 / M ADM Date: 05/01/20 Loc: ED Attending Dr: Ordering Physician: TATIANA ALMENDAREZ MD Date of Service: 05/01/20 Procedure(s): CT head/brain wo con Accession Number(s): [id number] cc: TATIANA ALMENDAREZ MD CT BRAIN: 05/01/2020 INDICATION / CLINICAL INFORMATION: Seizure. COMPARISON: 04/15 FINDINGS: BRAIN/INTRACRANIAL STRUCTURES: Unenhanced CT images of the brain were obtained and compared to the recent prior exam from 04/15/2020. There has been no change. Cortical encephalomalacia involving the left parietal and left occipital lobe is again noted. Right occipital encephalomalacia is stable. Chronic cerebellar ischemic changes are stable. Underlying diffuse cerebral atrophy is present. There is no evidence of acute ischemic injury, hemorrhage, or mass. There are no abnormal extra-axial fluid collections. EXTRACRANIAL STRUCTURES: Unremarkable. IMPRESSION: No acute abnormality. Prominent chronic ischemic changes. All CT scans at this location are performed using dose reduct ion to ALARA by means of automated exposure control. Signer Name: Galo Acevedo MD Signed: 05/01/2020 10:45 AM Workstation Name: [id number] Transcribed By: LAVON Dictated By: Galo Acevedo MD Electronically Authenticated By: Galo Acevedo MD Signed Date/Time: 05/01/20 1045 DD/ 104 TD/TT: Critical care attestation.: If time is entered above; I have spent that time in minutes in the direct care of this critically ill patient, excluding procedure time. ED Disposition Clinical Impression: History of seizures Closed head injury Qualifiers: Encounter type: initial encounter Qualified Code(s): S09.90XA - Unspecified injury of head, initial encounter Disposition: DC- TO HOME OR SELFCARE Is pt being admited?: No Does the pt Need Aspirin: No Condition: Stable Additional Instructions: Do not drive or operate motor vehicles for the next 6 months, or until cleared to do so by a primary care doctor or neurologist. Continue outpatient Keppra, and Lamictal medications. Avoid consumption of Motrin, ibuprofen, Naprosyn, Aleve, alcohol, recreational drugs and amphetamines. We recommend follow-up with a primary care doctor or neurologist within the next 3 to 5 days. Please return to the emergency room right away with new pain, worsening pain, migration of pain, projectile vomiting, change in mental status, confusion, inability to tolerate liquid feeds, new, worsened or different symptoms not present on the initial emergency room evaluation. Referrals: GORDON KHANNA MD [Referring] - 3-5 Days CRISPIN PEÑA MD [Staff Physician] - 3-5 Days
--- NOTE | 2020-05-01 10:50 | Cat Scan Report ---
CT BRAIN: 05/01/2020 INDICATION / CLINICAL INFORMATION: Seizure. COMPARISON: 04/15/2020 FINDINGS: BRAIN/INTRACRANIAL STRUCTURES: Unenhanced CT images of the brain were obtained and compared to the re cent prior exam from 04/15/2020. There has been no change. Cortical encephalomalacia involving the left parietal and left occipital lobe is again noted. Right o ccipital encephalomalacia is stable. Chronic cerebellar ischemic changes are stable. Underlying diffuse cerebral atrophy is present. There is no evidence of acute ischemic injury, hemorrhage, or mass. There are no abnormal extra-axial fluid collections. EXTRACRANIAL STRUCTURES: Unremarkable. IMPRESSION: No acute abnormality. Prominent chronic ischemic changes. All CT scans at this location are performed using dose reduction to ALARA by means of automated expos ure control. Signer Name: Galo Acevedo MD Signed: 05/01/2020 10:45 AM Workstation Name: [id number]
--- NOTE | 2020-05-01 10:56 | Cat Scan Report ---
CT CERVICAL SPINE: 05/01/2020 INDICATION / CLINICAL INFORMATION: Seizure. Trauma COMPARISON: None available. FINDINGS: CT images of the cervical spine were obtained. Images are evaluated in the axial, coronal, and sagitt al planes. There is no evidence of acute abnormality. Vertebral body height and alignment is normal. There is some degenerative disc space narrowing and mild osteophyte formation at C3-4 level. Degenera tive osteophyte formation is associated with the anterior atlantoaxial joint. : . CRANIOCERVICAL JUNCTION: Unremarkable. PARASPINAL STRUCTURES: Unremarkable IMPRESSION: No acute abnormality. All CT scans at this location are performed using dose reduction to ALARA by means of automated expos ure control. Signer Name: Galo Acevedo MD Signed: 05/01/2020 10:51 AM Workstation Name: [id number]
[2020-05-01 11:18] LABS: Hematocrit 37.2 % (35.5-45.6); Hemoglobin 12.6 gm/dl (11.8-15.2)
--- NOTE | 2020-05-01 11:19 | XRay Report ---
CHEST 1 VIEW 1038 INDICATION / CLINICAL INFORMATION: seizure, pneumonia COMPARISON: 04/15/2020 FINDINGS: SUPPORT DEVICES: Pacer is again noted HEART / MEDIASTINUM: Mild cardiomegaly is again seen LUNGS / PLEURA: Pulmonary vascularity appears within normal limits. No obvious pleural effusions are seen. No focal infiltrates are noted. No pneumothorax. ADDITIONAL FINDINGS: No significant additional findings. IMPRESSION: No significant acute abnormality Signer Name: David Santiago MD Signed: 05/01/2020 11:14 AM Workstation Name: [id number]
[2020-05-01 11:26] LABS: Albumin 4.2 g/dL (3.9-5); Calcium 9.6 mg/dL (8.4-10.2)
[2020-05-01 11:30] LABS: INR 1.2 (0.87-1.13)
[2020-05-01 11:31] LABS: Partial Thromboplastin Time 35.2 Sec. (24.2-36.6)
[2020-05-01 12:08] LABS: Bilirubin,Urine NEG (Negative); Blood,Urine NEG (Negative); Color,Urine Yellow (Yellow); Mucus,Urine FEW /HPF; Protein,Urine <15 mg/dL mg/dL (Negative); WBC,Urine < 1.0 /HPF (0.0-6.0)
[2020-05-01 13:24] VITALS: BP 107/72
== END 2020-05-01 13:53 | disposition home or self-care (01) ==
LOC: ED 10:06
DX: S09.90XA Unspecified injury of head, initial encounter (principal); R56.9 Unspecified convulsions; I50.9 Heart failure, unspecified; I11.0 Hypertensive heart disease with heart failure; F32.9 Major depressive disorder, single episode, unspecified; Z86.73 Personal history of transient ischemic attack (TIA), and cerebral infarction without residual deficits; Z79.899 Other long term (current) drug therapy; X58.XXXA Exposure to other specified factors, initial encounter; Y93.89 Activity, other specified; Y92.89 Other specified places as the place of occurrence of the external cause; Y99.8 Other external cause status
CPT/HCPCS: 36415; 70450; 71045; 72125; 80053; 81001; 82550; 83735; 85014; 85018; 85049; 85610; 85730; 90471; 90715; 93005; 96374; 99285; J1953; 80320; G0480

== ENCOUNTER 2020-05-01 21:33 | Observation (INO) | payer OTHER ==
--- NOTE | 2020-05-01 21:47 | Emergency Department Report ---
ED Seizure HPI - General Stated Complaint: SEIZURE Time Seen by Provider: 05/01/20 21:38 Source: patient, EMS Limitations: Other (aphasia) - History of Present Illness Initial Comments: Mr. Sanderson is a 50-year-old male with history of CVA in 2016, aphasia, hypertension, seizure disorder, hyperlipidemia, CHF, DM, CKD who presents with seizure. Patient was evaluated by my colleague this morning for possible seizure. Patient was discharged at 1315. Patient returns via EMS for seizure this evening. Patient has history of aphasia. Patient is able to communicate with nodding and shaking head. He denies pain. Patient had extensive evaluation during previous ED evaluation today including CT brain and CT cervical spine. Both without evidence of acute abnormalities. Hemoglobin and hematocrit platelet count were all within normal limits chemistry unremarkable. Magnesium 2.4. Urinalysis without evidence of infection. According to electronic medical record, Keppra was recently added to patient's antiepileptic regimen. According to EMR patient is also taking Vimpat Lamictal in addition to Keppra. I obtained history from EMS at the bedside. I spoke with sister Zeny Sanderson [phone]. Patient fell this morning. He had head trauma with gash to his head this morning. She assumed that he had a seizure. After she picked him up from the ED today, he did not appear to be his normal self. He just did not appear to be feeling well. He needed assistance walking up steps. Sister states that he has right sided weakness and numbness after seizures. This evening, she witnessed a seizure while patient was laying on the couch. She stated that the seizure was quite long. Seizure lasted until EMS arrived. Patient receives medical care at the [facility]. Seizures occur on a weekly basis. Sister is concerned that he is at risk for severe injury with recurrent seizures while on Eliquis. Complaint: seizure -: This evening Witnessed:: Yes Trauma: No Seizure History: known seizure disorder Place: home Possible Precipitating Event: none - Related Data Home Medications Medication Instructions Recorded Confirmed Last Taken Atorvastatin Calcium [Lipitor] 10 mg PO QDAY 06/21/19 05/01/20 Unknown Lacosamide [Vimpat] 100 mg PO Q12HR 06/21/19 05/01/20 Unknown carvediloL [Coreg] 12.5 mg PO BID 06/21/19 05/01/20 Unknown lisinopriL [Zestril TAB] 5 mg PO QDAY 06/21/19 05/01/20 Unknown AtorvaSTATin [Lipitor] 10 mg PO QHS 05/01/20 05/01/20 Unknown Eliquis 05/01/20 Unknown Lacosamide [Vimpat] 100 mg PO Q12HR 05/01/20 05/01/20 Unknown Previous Rx's Medication Instructions Recorded Last Taken Type lamoTRIgine [LaMICtal] 100 mg PO BID #60 05/01/20 Unknown Rx levETIRAcetam [Keppra TAB] 1,000 mg PO QAM #30 05/01/20 Unknown Rx levETIRAcetam [Keppra TAB] 1,250 mg PO QPM #30 05/01/20 Unknown Rx Allergies Allergy/AdvReac Type Severity Reaction Status Date / Time No Known Allergies Allergy Verified 04/15/20 21:20 ED Review of Systems ROS: Stated complaint: SEIZURE Other details as noted in HPI Comment: Unobtainable due to pts medical conditions (Aphasia, cognitive deficit due to CVA) ED Past Medical Hx - Past Medical History Previous Medical History?: Yes Hx Hypertension: Yes Hx CVA: Yes (2016) Hx Congestive Heart Failure: Yes Hx Seizures: Yes Hx Psychiatric Treatment: Yes (depression) Additional medical history: memory problems - Surgical History Hx Pacemaker: Yes Additional Surgical History: unknown - Social History Smoking Status: Never Smoker Substance Use Type: None - Medications Home Medications: Home Medications Medication Instructions Recorded Confirmed Last Taken Type Atorvastatin Calcium [Lipitor] 10 mg PO QDAY 06/21/19 05/01/20 Unknown History Lacosamide [Vimpat] 100 mg PO Q12HR 06/21/19 05/01/20 Unknown History carvediloL [Coreg] 12.5 mg PO BID 06/21/19 05/01/20 Unknown History lisinopriL [Zestril TAB] 5 mg PO QDAY 06/21/19 05/01/20 Unknown History AtorvaSTATin [Lipitor] 10 mg PO QHS 05/01/20 05/01/20 Unknown History Eliquis 05/01/20 Unknown History Lacosamide [Vimpat] 100 mg PO Q12HR 05/01/20 05/01/20 Unknown History lamoTRIgine [LaMICtal] 100 mg PO BID #60 05/01/20 05/01/20 Unknown Rx levETIRAcetam [Keppra TAB] 1,000 mg PO QAM #30 05/01/20 05/01/20 Unknown Rx levETIRAcetam [Keppra TAB] 1,250 mg PO QPM #30 05/01/20 05/01/20 Unknown Rx ED Physical Exam - General General appearance: alert, in no apparent distress - Head Head exam: Present: atraumatic, normocephalic, other (Healing abrasion right forehead) - Eye Eye exam: Present: normal appearance, PERRL - ENT ENT exam: Present: mucous membranes moist - Neck Neck exam: Present: normal inspection, full ROM - Respiratory Respiratory exam: Present: normal lung sounds bilaterally. Absent: respiratory distress, wheezes, rales, rhonchi - Cardiovascular Cardiovascular Exam: Present: regular rate, normal rhythm, normal heart sounds. Absent: systolic murmur, diastolic murmur, rubs, gallop - GI/Abdominal GI/Abdominal exam: Present: soft, normal bowel sounds. Absent: distended, tenderness, guarding, rebound - Rectal Rectal exam: Present: deferred - Extremities Exam Extremities exam: Present: normal inspection - Back Exam Back exam: Present: normal inspection - Neurological Exam Neurological exam: Present: alert - Psychiatric Psychiatric exam: Present: normal mood, flat affect - Skin Skin exam: Present: warm, dry, intact, normal color. Absent: rash ED Course Vital Signs 05/01/20 05/01/20 05/01/20 21:50 21:54 22:00 Temperature 98.2 F Pulse Rate 78 72 73 Respiratory 17 13 21 Rate Blood Pressure 145/95 Blood Pressure 146/95 [left arm] O2 Sat by Pulse 98 97 Oximetry 05/01/20 05/02/20 23:00 00:01 Temperature Pulse Rate 70 Respiratory 20 20 Rate Blood Pressure 145/97 128/69 Blood Pressure [left arm] O2 Sat by Pulse 97 93 Oximetry ED Medical Decision Making - Radiology Data Radiology results: report reviewed CT head: No acute traumatic injury no acute findings chest radiograph: No infiltrate no pneumothorax normal cardiac silhouette - Medical Decision Making Status epilepticus: Patient had prolonged seizure activity witnessed per sister today. CT head without contrast repeated to rule out intracranial hemorrhage. I spoke directly with tele-neurologist. She recommended to rule out sources of infection which my colleague did on earlier ED encounter. She also recommended IV thiamine 500 mg 1 dose here. She also recommended 100 mg IV thiamine daily. She also recommended TSH B12 ammonia. If work-up does not reveal metabolic or infectious process, she recommended increasing Lamictal dosing. She did not recommend stat EEG considering patient is at baseline. Critical care attestation.: If time is entered above; I have spent that time in minutes in the direct care of this critically ill patient, excluding procedure time. ED Disposition Clinical Impression: Status epilepticus Disposition: OP ADMIT IP TO THIS HOSP Is pt being admited?: Yes Does the pt Need Aspirin: No Condition: Stable
--- NOTE | 2020-05-01 22:30 | Consultation ---
History of Present Illness Consult date: 05/01/20 History of present illness: [facility] Consult Services Stat Consult Date of Service: 05/01/2020 22:03:51 Impression: Seizure Encephalopathy Comments/Sign-Out: Ecephalopathy, post-ictal. Frequent seizures. Admit under observation status. Continue Keppra 100BID, Vimpar 100BID and Lamictal 100BID. Look for seizure provoking factors, infectious/toxic/metabolic work-up. IV Thiamine. Prn benzos for breakthrough seizure activity. If no provoking factor identified then increase Lamictal to 125mg BID. Send Keppra levels. No indication for STAT EEG. CT HEAD: Showed No Acute Hemorrhage or Acute Core Infarct Metrics: [facility] Notification Time: 05/01/2020 22:02:27 Stamp Time: 05/01/2020 22:03:51 Callback Response Time: 05/01/2020 22:05:40 Video Start Time: 05/01/2020 22:13:23 Video End Time: 05/01/2020 22:25:00 Our recommendations are outlined below. Other WorkUp: Infectious/metabolic workup per primary team Check an ammonia level Check B12 level Check TSH Disposition: Neurology Follow Up Recommended Sign Out: Discussed with Emergency Department Provider Chief Complaint: Seizures History of Present Illness: Patient is a 50 year old Male. Limited history available. Stroke in 2016 with residual aphasia, on Apixaban. Also seizures on Vimpat and Lamictal. Had seizure this AM Keppra added, additional seizure this evening, returns to ER for evaluation. No family. EMS glucose 120s CT earlier today nothing acute Apparently patient is now back to baseline. Past Medical History: Hypertension Stroke Anticoagulant use: apixaban Examination: BP(146/95), Pulse(78), Blood Glucose(107) 1A: Level of Consciousness - Alert; keenly responsive + 0 1B: Ask Month and Age - Aphasic + 2 1C: Blink Eyes & Squeeze Hands - Performs Both Tasks + 0 2: Test Horizontal Extraocular Movements - Normal + 0 3: Test Visual Riddle - No Visual Loss + 0 4: Test Facial Palsy (Use Grimace if Obtunded) - Normal symmetry + 0 5A: Test Left Arm Motor Drift - No Drift for 10 Seconds + 0 5B: Test Right Arm Motor Drift - No Drift for 10 Seconds + 0 6A: Test Left Leg Motor Drift - No Drift for 5 Seconds + 0 6B: Test Right Leg Motor Drift - No Drift for 5 Seconds + 0 7: Test Limb Ataxia (FNF/Heel-Luevano) - No Ataxia + 0 8: Test Sensation - Normal; No sensory loss + 0 9: Test Language/Aphasia - Severe Aphasia: Fragmentary Expression, Inference Needed, Cannot Identify Materials + 2 10: Test Dysarthria - Normal + 0 11: Test Extinction/Inattention - No abnormality + 0 NIHSS Score: 4 Dr Zoila Lorenzo [facility] Case [id number] Medications and Allergies Allergies Allergy/AdvReac Type Severity Reaction Status Date / Time No Known Allergies Allergy Verified 04/15/20 21:20 Home Medications Medication Instructions Recorded Confirmed Last Taken Type Atorvastatin Calcium [Lipitor] 10 mg PO QDAY 06/21/19 05/01/20 Unknown History Lacosamide [Vimpat] 100 mg PO Q12HR 06/21/19 05/01/20 Unknown History carvediloL [Coreg] 12.5 mg PO BID 06/21/19 05/01/20 Unknown History lisinopriL [Zestril TAB] 5 mg PO QDAY 06/21/19 05/01/20 Unknown History AtorvaSTATin [Lipitor] 10 mg PO QHS 05/01/20 05/01/20 Unknown History Eliquis 05/01/20 Unknown History Lacosamide [Vimpat] 100 mg PO Q12HR 05/01/20 05/01/20 Unknown History lamoTRIgine [LaMICtal] 100 mg PO BID #60 05/01/20 Unknown Rx levETIRAcetam [Keppra TAB] 1,000 mg PO QAM #30 05/01/20 Unknown Rx levETIRAcetam [Keppra TAB] 1,250 mg PO QPM #30 05/01/20 Unknown Rx Physical Examination - Vital Signs Vital Signs: Vital Signs Temp Pulse Resp BP Pulse Ox 98.2 F 78 17 146/95 98 05/01/20 21:50 05/01/20 21:50 05/01/20 21:50 05/01/20 21:50 05/01/20 21:50
--- NOTE | 2020-05-01 22:57 | Cat Scan Report ---
CT head/brain wo con INDICATION: seizure altered mental status. TECHNIQUE: All CT scans at this location are performed using CT dose reduction for ALARA by means of automated e xposure control. COMPARISON: Earlier exam same day FINDINGS: Visualized paranasal and mastoid sinuses are clear. Left parietal and occipital encephalomalacia, unc hanged from the earlier exam. No mass, hemorrhage or other acute abnormality. IMPRESSION: 1. Chronic ischemic change but no acute abnormality and no change since earlier today. Signer Name: Derek Benton MD Signed: 05/01/2020 10:53 PM Workstation Name: [id number]
[2020-05-01] MEDS ORDERED: ONDANSETRON 4 MG/2 ML INJ IV PRN (23:54)
[2020-05-01] MEDS ORDERED: ACETAMINOPHEN 325 MG TAB PO PRN (23:54)
[2020-05-01] MEDS ORDERED: DEXTROSE 50% IN WATER (25GM) 50 ML SYRINGE IV PRN (23:54)
[2020-05-01] MEDS ORDERED: MAGNESIUM HYDROXIDE (MOM) ORAL LIQD UDC PO PRN (23:54)
--- NOTE | 2020-05-02 00:10 | History and Physical Report ---
History of Present Illness Date of examination: 05/01/20 Date of admission: 05/01/20 22:33 Chief complaint: Seizure Disorder History of present illness: 50-year-old male with known history of CVA in 2016, seizure disorder, hypertension, CHF, chronic kidney disease and hypertension was brought into the emergency room today for seizure disorder. This is his second presentation to the emergency room today . Patient was evaluated earlier in the day for possible seizure, he had a CT of the brain and cervical spine which did not show any acute abnormality , lab tests were also within normal limits and patient was discharged home. Most of the history was gotten from the emergency room physician as patient is not able to communicate very well. Patient was said to have been feeling weak and numb on the right side since his return home after his initial presentation in the emergency room. Cyst was said to have noticed another seizure at home and lasted for prolonged period of time until EMS arrived. Patient is said to receive his care at the [facility]. He was evaluated by the tele-neurologist and recommendation is to place patient on IV thiamine and adjust the dose of Lamictal as needed and also look for triggers for his seizures. Past History Past Medical History: diabetes, heart failure, hypertension, hyperlipidemia, renal failure, seizures, stroke (H/O CVA 2016) Past Surgical History: No surgical history Social history: no significant social history Family history: no significant family history Medications and Allergies Allergies Allergy/AdvReac Type Severity Reaction Status Date / Time No Known Allergies Allergy Verified 04/15/20 21:20 Home Medications Medication Instructions Recorded Confirmed Last Taken Type Atorvastatin Calcium [Lipitor] 10 mg PO QDAY 06/21/19 05/01/20 Unknown History Lacosamide [Vimpat] 100 mg PO Q12HR 06/21/19 05/01/20 Unknown History carvediloL [Coreg] 12.5 mg PO BID 06/21/19 05/01/20 Unknown History lisinopriL [Zestril TAB] 5 mg PO QDAY 06/21/19 05/01/20 Unknown History AtorvaSTATin [Lipitor] 10 mg PO QHS 05/01/20 05/01/20 Unknown History Eliquis 05/01/20 Unknown History Lacosamide [Vimpat] 100 mg PO Q12HR 05/01/20 05/01/20 Unknown History lamoTRIgine [LaMICtal] 100 mg PO BID #60 05/01/20 05/01/20 Unknown Rx levETIRAcetam [Keppra TAB] 1,000 mg PO QAM #30 05/01/20 05/01/20 Unknown Rx levETIRAcetam [Keppra TAB] 1,250 mg PO QPM #30 05/01/20 05/01/20 Unknown Rx Active Meds: Active Medications Acetaminophen (Tylenol) 650 mg PO Q4H PRN PRN Reason: Pain MILD(1-3)/Fever >100.5/DRAPER Atorvastatin Calcium (Atorvastatin) 10 mg PO QHS LISA Carvedilol (Coreg) 12.5 mg PO BID LISA Dextrose (D50w (25gm) Syringe) 50 ml IV Q30MIN PRN; Protocol PRN Reason: Hypoglycemia Dextrose (D50w (25gm) Syringe) 50 ml IV Q30MIN PRN; Protocol PRN Reason: Hypoglycemia Heparin Sodium (Porcine) (Heparin) 5,000 unit SUB-Q Q8HR [facility] Thiamine HCl 500 mg/ Sodium (Chloride) 55 mls @ 100 mls/hr IV ONCE ONE Stop: 05/02/20 00:29 Insulin Human Lispro (Humalog) 0 unit SUB-Q ACHS LISA; Protocol Lacosamide (Vimpat) 100 mg PO Q12HR LISA Lacosamide (Vimpat) 100 mg PO Q12HR [facility] Lamotrigine (Lamictal) 100 mg PO BID [facility] Lisinopril (Zestril) 5 mg PO QDAY [facility] Magnesium Hydroxide (Milk Of Magnesia) 30 ml PO Q4H PRN PRN Reason: Constipation Miscellaneous Medication (Atorvastatin Calcium [Lipitor]) 10 mg PO QDAY [facility] Miscellaneous Medication (Levetiracetam [Keppra Tab]) 1,000 mg PO QAM [facility] Miscellaneous Medication (Levetiracetam [Keppra Tab]) 1,250 mg PO QPM [facility] Ondansetron HCl (Zofran) 4 mg IV Q8H PRN PRN Reason: Nausea And Vomiting Sodium Chloride (Sodium Chloride Flush Syringe 10 Ml) 10 ml IV BID [facility] Sodium Chloride (Sodium Chloride Flush Syringe 10 Ml) 10 ml IV PRN PRN PRN Reason: LINE FLUSH Review of Systems ROS unobtainable: due to mental status Exam - Constitutional Vitals: Temp Pulse Resp BP Pulse Ox 98.2 F 70 20 145/97 97 05/01/20 21:50 05/01/20 23:00 05/01/20 23:00 05/01/20 23:00 05/01/20 23:00 General appearance: Present: no acute distress, well-nourished - EENT Eyes: Present: PERRL, EOM intact, scleral icterus ENT: hearing intact, clear oral mucosa, dentition normal - Respiratory Respiratory effort: normal Respiratory: bilateral: CTA - Cardiovascular Rhythm: regular Heart Sounds: Present: S1 & S2. Absent: gallop, systolic murmur, diastolic murmur - Extremities Extremities: no ischemia, pulses intact, pulses symmetrical, No edema, Full ROM Peripheral Pulses: within normal limits - Abdominal General gastrointestinal: Present: soft, non-tender, non-distended, normal bowel sounds. Absent: mass - Musculoskeletal Musculoskeletal: strength equal bilaterally - Psychiatric Psychiatric: appropriate mood/affect, cooperative - Neurologic Neurologic: CNII-XII intact, moves all extremities - Additional findings Additional findings: Bruise over right side of forehead Results - Labs CBC & Chem 7: 05/02/20 04:49 05/02/20 04:49 Assessment and Plan - Patient Problems (1) Status epilepticus Current Visit: Yes Status: Acute Plan to address problem: Patient placed on PRN Lorazepam. We will continue patient's routine home medications. He has had IV thiamine as recommended by the neurologist. EEG not recommended at this time.. We will place a consult to neurology for follow-up. (2) Altered mental status Current Visit: No Status: Acute Qualifiers: Altered mental status type: unspecified Qualified Code(s): R41.82 - Altered mental status, unspecified Plan to address problem: Probably secondary to the seizure disorder. Will monitor mental status. (3) Renal insufficiency Current Visit: No Status: Acute Plan to address problem: Patient has was slightly elevated creatinine. Will give some IV fluid and monitor BUN and creatinine. (4) DVT prophylaxis Current Visit: No Status: Acute Plan to address problem: Patient on anticoagulation. (5) Full code status Current Visit: No Status: Acute
[2020-05-02] MEDS ORDERED: THIAMINE 500 MG in SODIUM CHLORIDE 0.9% 50 ML IV ONE (01:00)
[2020-05-02] MEDS ORDERED: LORazepam 2 MG/ML VIAL IV PRN (04:44)
[2020-05-02] MEDS: HEPARIN 5,000 UNIT/1 ML VIAL SUB-Q SCH ×3 (05:08→22:25)
[2020-05-02 05:09] LABS: Basophils % (Auto) 0.4 % (0.0-1.8); Eosinophils # (Auto) 0.2 K/mm3 (0.0-0.4); Eosinophils % (Auto) 2.8 % (0.0-4.3); Hematocrit 37.8 % (35.5-45.6); Hemoglobin 12.7 gm/dl (11.8-15.2); Lymphocytes # (Auto) 1.5 K/mm3 (1.2-5.4); Mean Corpuscular HGB Conc 34 % (32-34); Mean Corpuscular Volume 90 fl (84-94); Monocytes # (Auto) 0.6 K/mm3 (0.0-0.8); Monocytes % (Auto) 10.3 % (0.0-7.3); Platelet Count 258 K/mm3 (140-440); Red Cell Distribution Width 13.9 % (13.2-15.2)
[2020-05-02 05:26] LABS: INR 1.11 (0.87-1.13)
[2020-05-02 05:29] LABS: Calcium 9.7 mg/dL (8.4-10.2)
[2020-05-02] MEDS ORDERED: SODIUM CHLORIDE 0.9% 1000 ML 1,000 ML IV SCH (06:15)
[2020-05-02] MEDS: LACOSAMIDE 100 MG TAB PO SCH ×2 (09:20→22:00)
[2020-05-02] MEDS: levETIRAcetam 500 MG TAB PO SCH (09:20)
[2020-05-02] MEDS: LISINOPRIL 5 MG TAB PO SCH (09:21)
[2020-05-02] MEDS: INSULIN LISPRO 100 UNIT/ML VIAL 3 mL SUB-Q SCH ×4 (09:21→22:00)
[2020-05-02] MEDS: carvediloL 12.5 MG TAB PO SCH ×2 (09:21→22:00)
[2020-05-02] MEDS ORDERED: lamoTRIgine 100 MG TAB PO SCH (10:00)
[2020-05-02] MEDS ORDERED: ATORVASTATIN CALCIUM 10 MG PO SCH (10:00)
[2020-05-02] MEDS ORDERED: LACOSAMIDE 100 MG TAB PO SCH (10:00)
[2020-05-02] MEDS ORDERED: lamoTRIgine 25 MG TAB PO SCH (16:26)
[2020-05-02] MEDS ORDERED: levETIRAcetam 500 MG TAB PO SCH (18:00)
--- NOTE | 2020-05-02 18:42 | Progress Note ---
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 CT head w/o any acute changes. cont current AEDs - increase the dose of Vimpet. Subjective Date of service: 05/02/20 Interval history: Patient seen and examined. Medical records and medication list reviewed. No acute event overnight noted by the RN. Patient denies any chest pain or difficulty breathing. Patient is tolerating diet. Discussed plan of care at bedside with patient. Objective - Exam Narrative Exam: General appearance: Present: no acute distress, well-nourished - EENT Eyes: Present: PERRL ENT: hearing intact, clear oral mucosa - Neck Neck: Present: supple, normal ROM - Respiratory Respiratory effort: normal Respiratory: bilateral: CTA - Cardiovascular Heart Sounds: Present: S1 & S2. Absent: rub, click - Extremities Extremities: pulses symmetrical, No edema Peripheral Pulses: within normal limits - Abdominal General gastrointestinal: Present: soft, non-tender, non-distended, normal bowel sounds - Integumentary Integumentary: Present: clear, warm, dry - Musculoskeletal Musculoskeletal: gait normal, strength equal bilaterally - Psychiatric Psychiatric: appropriate mood/affect, intact judgment & insight - Neurologic Neurologic: CNII-XII intact, moves all extremities, other (dysarthia ) - Constitutional Vitals: Vital Signs - 12hr 05/02/20 05/02/20 05/02/20 10:46 16:19 18:37 Temperature 98.7 F 99.0 F Pulse Rate 65 101 H Respiratory 20 20 Rate Blood Pressure 104/69 161/109 121/81 O2 Sat by Pulse 96 99 Oximetry - Labs CBC & Chem 7: 05/02/20 04:49 05/03/20 08:10 Labs: Abnormal lab results 05/02/20 05/02/20 Range/Units 04:49 04:49 [place] % (Auto) 10.3 H (0.0-7.3) % Creatinine 1.5 H (0.8-1.3) mg/dL Glucose 109 H (75-100) mg/dL
[2020-05-02] MEDS ORDERED: NON-FORMULARY EACH (Eliquis 5 MG) PO SCH (22:00)
[2020-05-02] MEDS: lamoTRIgine 25 MG TAB PO SCH (22:00)
[2020-05-02] MEDS: APIXABAN 5 MG TAB PO SCH (23:00)
[2020-05-03] MEDS: INSULIN LISPRO 100 UNIT/ML VIAL 3 mL SUB-Q SCH ×2 (08:37→12:13)
[2020-05-03 09:13] LABS: Calcium 9.1 mg/dL (8.4-10.2)
[2020-05-03] MEDS: lamoTRIgine 25 MG TAB PO SCH (09:53)
[2020-05-03] MEDS: APIXABAN 5 MG TAB PO SCH (09:53)
[2020-05-03] MEDS: levETIRAcetam 500 MG TAB PO SCH (09:54)
[2020-05-03] MEDS: LACOSAMIDE 100 MG TAB PO SCH (09:54)
[2020-05-03] MEDS: LISINOPRIL 5 MG TAB PO SCH (09:54)
[2020-05-03] MEDS: carvediloL 12.5 MG TAB PO SCH (09:55)
[2020-05-03 12:53] VITALS: BP 127/89
--- NOTE | 2020-05-03 13:01 | Discharge Summary ---
Providers - Providers Date of Admission: 05/01/20 22:33 Date of discharge: 05/03/20 Attending physician: MALKA HAAS 05/01/20 23:54 Consult to Physician [CONS] Routine Comment: Consulting Provider: SHAKILA ANDUJAR Physician Instructions: Reason For Exam: Status Epilepticus 05/01/20 23:56 Consult to Dietitian/Nutrition [CONS] Routine Physician Instructions: Reason For Exam: Reason for Consult: Diet education Primary care physician: AGENCY OPERATOR Hospitalization Condition: Stable Hospital course: Discharge diagnosis: Breakthrough Seizure - cont keppra, vimpat, increase dose of lamictal - CT head w/o any acute changes Chronic CHF, compensated - cont antifailure medications -s/p pacemaker 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 - cont AC, statin Chronic AC with h/o blood clots, on eliquis HTN, stable HLD, cont statin Disposition: TO HOME OR SELFCARE Time spent for discharge: 34 minutes Core Measure Documentation - Palliative Care Palliative Care/ Comfort Measures: Not Applicable - Core Measures Any of the following diagnoses?: none Exam - Physical Exam Narrative exam: General appearance: Present: no acute distress, well-nourished - EENT Eyes: Present: PERRL ENT: hearing intact, clear oral mucosa - Neck Neck: Present: supple, normal ROM - Respiratory Respiratory effort: normal Respiratory: bilateral: CTA - Cardiovascular Heart Sounds: Present: S1 & S2. Absent: rub, click - Extremities Extremities: pulses symmetrical, No edema Peripheral Pulses: within normal limits - Abdominal General gastrointestinal: Present: soft, non-tender, non-distended, normal bowel sounds - Integumentary Integumentary: Present: clear, warm, dry - Musculoskeletal Musculoskeletal: gait normal, strength equal bilaterally - Psychiatric Psychiatric: appropriate mood/affect, intact judgment & insight - Neurologic Neurologic: CNII-XII intact, moves all extremities, other (dysarthia ) - Constitutional Vitals: Temp Pulse Resp BP Pulse Ox 98.6 F 80 16 127/89 97 05/03/20 11:36 05/03/20 11:36 05/03/20 11:36 05/03/20 11:36 05/03/20 11:36 Plan Activity: advance as tolerated Weight Bearing Status: Weight Bear as Tolerated Diet: low fat, low salt Additional Instructions: [facility] Follow up with: PRIMARY CARE, [Primary Care Provider] - 7 Days
[2020-05-03 13:46] LABS: Amphetamine Screen,Urine Negative; Benzodiazepines Screen,Urine Negative; Cannabinoid Screen,Urine Negative; Cocaine Screen,Urine Negative; Methadone Screen,Urine Negative; Opiate Screen,Urine Negative
--- NOTE | 2020-05-06 12:16 | XRay Report ---
CHEST 1 VIEW, 05/01/2020 10:29 PM CLINICAL INFORMATION/INDICATION: Seizure COMPARISON: Chest radiograph, 05/01/2020 FINDINGS: SUPPORT DEVICES: Dual lead cardiac pacing device projects in stable position. HEART: The cardiac silhouette is normal in size. LUNGS/PLEURA: The lungs are clear of focal airspace disease or significant pleural effusion. ADDITIONAL FINDINGS: No additional acute findings. IMPRESSION: 1. No evidence of acute cardiopulmonary process. Signer Name: Carissa Castillo MD Signed: 05/01/2020 11:43 PM Workstation Name: [id number]
== END 2020-05-03 17:37 | disposition home or self-care (01) ==
LOC: ED 21:33 → 3A 22:33
PROVIDERS: ADMIT Internal Medicine Geriatric Medicine; ATTEND Internal Medicine
DX: G40.901 Epilepsy, unspecified, not intractable, with status epilepticus (principal); R41.82 Altered mental status, unspecified; I13.0 Hypertensive heart and chronic kidney disease with heart failure and stage 1 through stage 4 chronic kidney disease, or unspecified chronic kidney disease; I50.9 Heart failure, unspecified; N18.9 Chronic kidney disease, unspecified; E11.9 Type 2 diabetes mellitus without complications; E78.5 Hyperlipidemia, unspecified; F32.9 Major depressive disorder, single episode, unspecified; Z86.73 Personal history of transient ischemic attack (TIA), and cerebral infarction without residual deficits; Z79.4 Long term (current) use of insulin
CPT/HCPCS: 36415; 70450; 71045; 80048; 80177; 80307; 82140; 82607; 82962; 84443; 85025; 85610; 96361; 96365; 96372; 99285; A9270; G0378; J1644; J3411; J7030